=== PATIENT | male | born 1990 ===

== ENCOUNTER 2017-05-22 17:20 | Emergency (ER) | payer BC ==
--- NOTE | 2017-05-22 18:01 | UC ---
Back Pain HPI - HPI Summary HPI Summary: Pt presents with request for return to work note. Pt reports he had gradual onset of low back pain on 05/18/17 after taking a long bike ride on 05/16 and . Pt left work on 05/18 due to low back pain. Place of work is requesting today 05/22, that he receive medical clearance for return to work. Pt was not medically evaluated at time of acute back pain. - History of Current Complaint Chief Complaint: UCBackPain Stated Complaint: F/U BACK SPASMS Time Seen by Provider: 05/22/17 17:38 Hx Obtained From: Patient Onset/Duration: Sudden Onset, Lasting Days, Resolved Timing: Constant, Lasting Days Severity Initially: Moderate Severity Currently: None Pain Intensity: 1 Back Pain: Is Discrete @ - low back Character: Dull, Aching, Stiffness Aggravating Factor(s): Movement, Lifting, Bending, Walking Alleviating Factor(s): Rest, Position Associated Signs And Symptoms: Positive: Negative - Risk Factors AAA Risk Factors: Negative TAD Risk Factors: Negative Cauda Equina Risk Factors: Negative Epidural Abscess Risk Factors: Negative - Allergies/Home Medications Allergies/Adverse Reactions: Allergies Allergy/AdvReac Type Severity Reaction Status Date / Time No Known Allergies Allergy Verified 05/22/17 17:45 Home Medications: Home Medications NK [No Home Medications Reported] 05/22/17 [History Confirmed 05/22/17] PMH/Surg Hx/FS Hx/Imm Hx Previously Healthy: Yes - Surgical History Surgical History: Yes Surgery Procedure, Year, and Place: bilateral shoulder surgery - Family History Known Family History: Positive: Cardiac Disease - Social History Occupation: Employed Full-time Lives: With Family Alcohol Use: Rare Substance Use Type: None Smoking Status (MU): Never Smoked Tobacco Have You Smoked in the Last Year: No Review of Systems Constitutional: Negative Skin: Negative Eyes: Negative ENT: Negative Respiratory: Negative Cardiovascular: Negative Gastrointestinal: Negative Genitourinary: Negative Motor: Decreased ROM - low back Neurovascular: Negative Musculoskeletal: Myalgia Neurological: Negative Psychological: Negative Is Patient Immunocompromised?: No All Other Systems Reviewed And Are Negative: Yes Physical Exam Triage Information Reviewed: Yes Appearance: Well-Appearing Vital Signs: Initial Vital Signs Temp 99.4 F 05/22/17 17:34 Pulse 95 05/22/17 17:34 Resp 16 05/22/17 17:34 BP 117/61 05/22/17 17:34 Pulse Ox 100 05/22/17 17:34 Vital Signs Reviewed: Yes Eye Exam: Normal ENT Exam: Normal Dental Exam: Normal Neck exam: Normal Respiratory Exam: Normal Cardiovascular Exam: Normal Musculoskeletal Exam: Normal Musculoskeletal: Positive: Strength Intact, ROM Intact, No Edema Neurological Exam: Normal Psychological Exam: Normal Skin Exam: Normal Back Pain Course/Dx - Differential Dx/Diagnosis Differential Diagnosis/HQI/PQRI: Epidural Abscess, Herniated Disc, Strain, Sprain Provider Diagnoses: low back pain-resolved Discharge - Discharge Plan Condition: Stable Disposition: HOME Patient Education Materials: Back Pain (ED), Lower Back Exercises (ED) Referrals: [facility]IAN REFERRAL [Outside] No Primary Care Phys,NOPCP [Primary Care Provider] -
== END 2017-05-22 18:11 | disposition home or self-care (01) ==
LOC: UCCORT 17:20
DX: M54.5 Low back pain (principal); X50.1XXA Overexertion from prolonged static or awkward postures, initial encounter; Y93.55 Activity, bike riding; Y92.9 Unspecified place or not applicable
CPT/HCPCS: 99201; G0463